=== PATIENT | female | born 1985 | race Two or more races ===

== ENCOUNTER 2019-06-09 05:01 | Inpatient (IN) | payer OTHER ==
[~2019-06-09] VITALS: Ht 15.2 cm; Wt 5.0 kg
[~2019-06-09 05:01] MED LIST: FIORICET; HYDROCHLOROTH12.5 M1; PNEU16DI2
[2019-06-09] MEDS ORDERED: GILTUSS TR TAB1 EACH PO (10:28)
[2019-06-09] MEDS ORDERED: ESGIC CAPSULE1 EACH (10:30)
== END 2019-06-11 09:08 | disposition home or self-care (01) | DRG 743 ==
LOC: CIR.AMB 05:01 → O/R 10:01 → OB/GYN 10:46 → CIR.AMB 12:44 → OB/GYN 06-11 09:08
PROVIDERS: ADMIT Obstetrics & Gynecology
PROC: 0UB00ZZ Excision of Right Ovary, Open Approach (ICD-10-PCS; principal; 2019-06-09 07:00)
DX: N83.11 Corpus luteum cyst of right ovary (principal); I10 Essential (primary) hypertension

== ENCOUNTER 2021-10-10 09:07 | Outpatient (CLI) | payer OTHER ==
[~2021-10-10 09:07] MED LIST changes: +ESGIC CAPSULE1 EACH; +GILTUSS TR TAB1 EACH PO
== END 2021-10-10 09:16 | disposition home or self-care (01) ==
LOC: RX STUDY 09:07
PROVIDERS: ATTEND Obstetrics & Gynecology
DX: E21.0 Primary hyperparathyroidism (principal); R10.2 Pelvic and perineal pain; N97.1 Female infertility of tubal origin